=== PATIENT | female | born 1995 | race Caucasian/White ===

== ENCOUNTER 2018-04-27 16:29 | Observation (INO) | payer OTHER ==
[2018-04-27 16:43] VITALS: BMI 27.4
--- NOTE | 2018-04-27 16:45 | PDOC ---
Rapid Medical Evaluation Chief Complaint: Chest Pain Time Seen by Provider: 04/27/18 16:39 Medical Evaluation: 04/27/18 16:39 Pt presents to the ED stating she is having chest pain and difficulty breathing. Pt states that it started one hour ago while driving. States that she feels like her throat is closing up. Pt states she has anxiety. No recent travel, control use, smoking hx. Exam: VSS, O2 sat 100% HR 124. Ambulatory Orders: EKG, Labs, Urine, Preg Pt to present to ED for further evaluation. 04/27/18 16:45 Discharge Disposition - Diagnosis Shortness of breath - Referrals - Patient Instructions - Post Discharge Activity
[2018-04-27 17:37] LABS: BASO % 0.6 % (0-2.0); EOS % 1.3 % (0-4.5); HEMATOCRIT 42.8 % (32.4-45.2); HEMOGLOBIN 14.4 GM/dL (10.7-15.3); LYMPH % 14.1 % (8-40); MCH 29.3 pg (25.7-33.7); MCHC 33.6 g/dl (32.0-36.0); MEAN CELL VOLUME 87.4 fl (80-96); MEAN PLT VOLUME 8.5 fl (7.5-11.1); MONO % 4.6 % (3.8-10.2); NEUT % 79.4 % (42.8-82.8); PLATELET COUNT 323 K/MM3 (134-434); RBC 4.89 M/mm3 (3.60-5.2); RDW 12.1 % (11.6-15.6); WHITE BLOOD COUNT 12.2 K/mm3 (4.0-10.0)
--- NOTE | 2018-04-27 17:49 | PDOC ---
History of Present Illness <Brigette Sol - Last Filed: 04/27/18 23:51> - General History Source: Patient Exam Limitations: No Limitations - History of Present Illness Initial Comments: 04/27/18 19:39 22F with pmh of hives, dermatographia, presents to the ED for episode of palpitation and shortness of breath, feeling of throat closing before feeling better once here. She has multiple random episodes less severe than this one. Has been seen by a photograph developer last year who said her condition was idiopathic. \Denies leg pain/swelling. No anxiety, no recent travel, recent surgery control use, recent history. 04/27/18 19:48 <Karlos Ortiz - Last Filed: 04/28/18 00:09> - General Chief Complaint: Chest Pain Stated Complaint: CHEST PAIN Time Seen by Provider: 04/27/18 16:39 Past History <Brigette Sol - Last Filed: 04/27/18 23:51> - Past Medical History COPD: No Other medical history: [facility] mild panic attacks recently - Suicide/Smoking/Psychosocial Hx Smoking History: Never smoked Hx Alcohol Use: No Drug/Substance Use Hx: No <Karlos Ortiz - Last Filed: 04/28/18 00:09> - Past Medical History Allergies/Adverse Reactions: Allergies Allergy/AdvReac Type Severity Reaction Status Date / Time No Known Allergies Allergy Verified 04/27/18 16:43 Home Medications: Ambulatory Orders NK [No Known Home Medication] 04/27/18 Review of Systems - Review of Systems Able to Perform ROS?: Yes Is the patient limited Bur[place]ian proficient: No Constitutional: No: Symptoms Reported HEENTM: Yes: See HPI Respiratory: No: Symptoms reported Cardiac (ROS): Yes: Palpitations ABD/GI: No: Symptoms Reported : No: Symptoms Reported Musculoskeletal: No: Symptoms Reported Integumentary: Yes: See HPI Neurological: No: Symptoms reported All Other Systems: Reviewed and Negative <Karlos Ortiz - Last Filed: 04/28/18 00:09> *Physical Exam - Vital Signs Last Vital Signs Temp Pulse Resp BP Pulse Ox 98.7 F 117 H 16 127/71 100 04/27/18 18:41 04/27/18 18:41 04/27/18 18:41 04/27/18 18:41 04/27/18 18:41 <Brigette Sol - Last Filed: 04/27/18 23:51> - Vital Signs Last Vital Signs Temp Pulse Resp BP Pulse Ox 98.6 F 112 H 16 131/97 100 04/27/18 16:40 04/27/18 16:45 04/27/18 16:45 04/27/18 16:40 04/27/18 16:45 - Physical Exam General Appearance: Yes: Nourished, Appropriately Dressed. No: Apparent Distress HEENT: positive: EOMI, MELL, Normal ENT Inspection Respiratory/Chest: positive: Lungs Clear, Normal Breath Sounds. negative: Chest Tender, Respiratory Distress Cardiovascular: positive: Regular Rhythm, S1, S2, Tachycardia Gastrointestinal/Abdominal: positive: Normal Bowel Sounds, Flat, Soft. negative : Tender Musculoskeletal: positive: Normal Inspection. negative: CVA Tenderness Extremity: positive: Normal Capillary Refill, Normal Inspection, Normal Range of Motion Integumentary: positive: Other (dermatographia) Neurologic: positive: Fully Oriented, Alert, Normal Mood/Affect, Normal Response <Karlos Ortiz - Last Filed: 04/28/18 00:09> ED Treatment Course - LABORATORY CBC & Chemistry Diagram: 04/27/18 17:27 04/27/18 17:27 - ADDITIONAL ORDERS Additional order review: Laboratory Results 04/27/18 04/27/18 04/27/18 21:03 21:03 17:27 D-Dimer < 200 Sodium Potassium Chloride Carbon Dioxide Anion Gap BUN Creatinine Creat Clearance w eGFR Random Glucose Calcium Total Bilirubin AST ALT Alkaline Phosphatase Creatine Kinase 67 Creatine Kinase Index CK-MB (CK-2) Troponin I < 0.02 Total Protein Albumin TSH 1.33 Urine Color Urine Appearance Urine pH Ur Specific [place] Urine Protein Urine Glucose (UA) Urine Ketones Urine Blood Urine Nitrite Urine Bilirubin Urine Urobilinogen Ur Leukocyte Esterase Urine WBC (Auto) Urine RBC (Auto) Ur Epithelial Cells Urine HCG, Qual 04/27/18 04/27/18 04/27/18 17:27 17:27 17:15 D-Dimer Sodium 139 Potassium 3.8 Chloride 106 Carbon Dioxide 24 Anion Gap 9 BUN 12 Creatinine 0.9 Creat Clearance w eGFR > 60 Random Glucose 97 Calcium 9.5 Total Bilirubin 0.4 AST < 3 L ALT 21 Alkaline Phosphatase 79 Creatine Kinase 238 H Creatine Kinase Index 1.4 CK-MB (CK-2) 3.44 Troponin I < 0.02 Total Protein 8.4 H Albumin 4.8 TSH Urine Color Colorless Urine Appearance Clear Urine pH 7.0 Ur Specific [place] 1.002 Urine Protein Negative Urine Glucose (UA) Negative Urine Ketones Negative Urine Blood 1+ H Urine Nitrite Negative Urine Bilirubin Negative Urine Urobilinogen Negative Ur Leukocyte Esterase Negative Urine WBC (Auto) <1 Urine RBC (Auto) 1 Ur Epithelial Cells Rare Urine HCG, Qual Negative 04/27/18 17:27 RBC 4.89 MCV 87.4 MCHC 33.6 RDW 12.1 MPV 8.5 Neutrophils % 79.4 Lymphocytes % 14.1 Monocytes % 4.6 Eosinophils % 1.3 Basophils % 0.6 - RADIOLOGY Radiology Studies Ordered: Category Date Time Status CHEST PA & LAT [RAD] Stat Radiology 04/27/18 21:01 Taken - Medications Given in the ED: ED Medications Discontinued Medications Generic Name Dose Route Start Last Admin Trade Name Freq PRN Reason Stop Dose Admin Diphenhydramine HCl 50 mg 04/27/18 20:08 04/27/18 20:15 Benadryl Injection - IVPUSH 04/27/18 20:09 50 mg ONCE ONE Administration Sodium Chloride 1,000 mls @ 1,000 mls/hr 04/27/18 20:19 04/27/18 20:23 Normal Saline - IV 04/27/18 21:18 1,000 mls/hr ASDIR STA Administration Lorazepam 1 mg 04/27/18 20:56 04/27/18 21:35 Ativan - PO 04/27/18 20:57 1 mg ONCE ONE Administration <Brigette Sol - Last Filed: 04/27/18 23:51> - LABORATORY CBC & Chemistry Diagram: 04/27/18 17:27 04/27/18 17:27 - ADDITIONAL ORDERS Additional order review: 04/27/18 17:27 RBC 4.89 MCV 87.4 MCHC 33.6 RDW 12.1 MPV 8.5 Neutrophils % 79.4 Lymphocytes % 14.1 Monocytes % 4.6 Eosinophils % 1.3 Basophils % 0.6 <Karlos Ortiz - Last Filed: 04/28/18 00:09> Medical Decision Making - Medical Decision Making 04/27/18 19:51 Will send basic labs, cardiac enzymes, tryptase, EKG Will send home with referral to utilization specialist, Romario 04/27/18 19:52 04/27/18 23:40 ekg 1st degree AV block and tachycardia. PAtient spiked hr after injection of benadryl to the 150's given 1L of NS but patient persistently tachycardic in the 120's 8 hours later P 04/28/18 00:09 Carditis? check Lyme titers Will admit to telemetry obs 04/28/18 00:09 <Karlos Ortiz - Last Filed: 04/28/18 00:09> *DC/Admit/Observation/Transfer - Discharge Dispostion Decision to Admit order: Yes <Brigette Sol - Last Filed: 04/27/18 23:51> - Discharge Dispostion Decision to Admit order: Yes <Karlos Ortiz - Last Filed: 04/28/18 00:09> Diagnosis at time of Disposition: Shortness of breath - Discharge Dispostion Condition at time of disposition: Improved - Patient Instructions Additional Instructions: Follow up with utilization specialist
[2018-04-27 17:50] LABS: URINE APPEARANCE CLEAR; URINE BILIRUBIN NEGATIVE (<2.0 mg/dL); URINE COLOR COLORLESS; URINE GLUCOSE (UA) NEGATIVE (NEGATIVE); URINE KETONE NEGATIVE (NEGATIVE); URINE LEUK ESTERASE NEGATIVE (NEGATIVE); URINE NITRITE NEGATIVE (NEGATIVE); URINE PROTEIN NEGATIVE (NEGATIVE); URINE UROBILINOGEN NEGATIVE mg/dL (0.2-1.0)
[2018-04-27 18:03] LABS: ALBUMIN 4.8 g/dl (3.4-5.0); ALK PHOS 79 U/L (45-117); ANION GAP 9 (8-16); BILIRUBIN,TOTAL 0.4 mg/dL (0.2-1.0); BLOOD UREA NITROGEN 12 mg/dL (7-18); CALCIUM 9.5 mg/dL (8.5-10.1); CHLORIDE 106 mmol/L (98-107); CO2 24 mmol/L (21-32); CREATININE 0.9 mg/dL (0.55-1.02); GLUCOSE,RANDOM 97 mg/dL (74-106); POTASSIUM 3.8 mmol/L (3.5-5.1); SGPT/ALT 21 U/L (12-78); SODIUM 139 mmol/L (136-145); TOT PROT 8.4 g/dl (6.4-8.2)
[2018-04-27 18:26] LABS: SGOT/AST < 3 U/L (15-37)
[2018-04-27 18:32] LABS: EPI CELLS RARE /HPF (FEW)
[2018-04-27 18:59] LABS: HCG,QUALITATIVE URINE NEGATIVE
[2018-04-27] MEDS ORDERED: SODIUM CHLORIDE 1,000 ML IV STA (20:19)
--- NOTE | 2018-04-27 20:51 | PDOC ---
Attending Attestation - Resident Resident Name: Karlos Ortiz - ED Attending Attestation I have performed the following: I have examined & evaluated the patient, The case was reviewed & discussed with the resident, I agree w/resident's findings & plan - HPI HPI: 04/27/18 20:46 Pt comes with SOB and feeling that her throat was swelling today at 3:30 as she was at work, at [employer] in [facility] [employer]. Pt has been having allergic episodes as well as heart racing x 1 month. She went to an mold parter who found nothing specific, but told pt that she is allergic to random things such as "walking barefot on a cold floor," as per patient. Pt has been taking daily shreya tabs. Today pt ate fish and eggs. She states that she has no tongue or lip swelling, no voice change. COmplained of throat closing feeling, but she is able to drink water, and she drank a lot of water to avert the feeling. Here pt received benadryl. She has no fever and no chills; no hx of viral illness; no CP; no cough; no fever. No hx of reflux. No recent rtavel. She took a 3 [address] flight to [employer] in December. No long drives. She doesnt smoke tobacco and she is not on OCPs. She doesn't use drugs (smoked weed once and never again) Drinks alcohol socially. Pt states that when she drinks coffee, she feels like her heart speeds up. Pt may have propensity for arrhythmia, and for this she will be referred to cardiology as an outpatient. - Physicial Exam PE: 04/27/18 20:51 Normal Exam, clear lungs; tachy heart. Calves non edematous and no calf tenderness. !st set of labs normal UA normal. UCG negative. Pt will have 2nd set cardiac enzymes; repeat EKG and a D-Dimer sent - Medical Decision Making 04/28/18 04:48 Pt comes with SOB and heart racing. She states that for the past month she noticed that she feels palpitations when she drinks a few sips of coffee. Pt states that she feels a bit anxious, but admits that she has no reason to be nervous or anxious or stressed. Pt has persistent tachycardia in the ER and she will be admitted for cardiac eval, despite the fact that she has 2 negative cardiac enzymes. Her chest tightness began at arrival, and 2 card enzymes is not enough to r/o a cardiac event. Admit to telemetry obs, under the hospitalist. Heart Score/ECG Review - ECG Intrepretation Rhythm: Regular Rhythm - ST and T Early Repolarization: No Non Specific ST-T Wave changes: No Prolonged Q-T Interval: No - ECG Impressions Normal ECG: No Tachycardia: Sinus Torsades miah Pointes: No WPW: No
[2018-04-27] MEDS ORDERED: LORazepam 1 MG TABLET PO ONE (20:56)
[2018-04-27] MEDS ORDERED: LORazepam 0.5 MG TABLET ONE (21:30)
[2018-04-28] MEDS ORDERED: SODIUM CHLORIDE 1,000 ML IV SCH ×2 (01:15→12:57)
--- NOTE | 2018-04-28 01:40 | HP ---
CHIEF COMPLAINT: SOB, "throat closing" PCP: HISTORY OF PRESENT ILLNESS: Patient is a 22 y/o F w/ PMHx urticaria x 5 years treated by OTC claritin, p/w 1 month h/o episodic SOB, sensation of throat closing, difficulty swallowing, lightheadedness. Episodes last 10-30 minutes. Patient feels they are become more frequent, severe, and longer. Worst episode to date took place today, prompting ED visit. No chest pain, no pleuritic pain, no n/v/c/d, no fever or chills, no abdominal pain, no dysuria, normal BMs, no headache, no visual disturbance, no changes in sensation, no numbness/tingling, no weakness. Found to be persistently tachycardic to 120s in ED. Given 1 dose IV benadryl which precipitated throat closing sensation and aggravated tachycardia to 150s. Additionally given 1L saline bolus and one dose ativan. EKG showed 1st degree heart block. ER course was notable for: (1) 1st degree AV block (2) Benadryl precipitating tachycardia (3) Recent Travel: PAST MEDICAL HISTORY: None except as per HPI PAST SURGICAL HISTORY: None Social History: Smoking: No Alcohol: Socially Drugs: No Family History: non-contributory Allergies No Known Allergies Allergy (Verified 04/27/18 16:43) HOME MEDICATIONS: Home Medications Medication Instructions Recorded NK [No Known Home Medication] 04/27/18 REVIEW OF SYSTEMS As per [facility] PHYSICAL EXAMINATION Vital Signs - 24 hr 04/27/18 04/27/18 04/27/18 16:40 16:45 18:41 Temperature 98.6 F 98.7 F Pulse Rate 124 H Pulse Rate [ 112 H 117 H Apical] Respiratory 24 16 16 Rate Blood Pressure 131/97 Blood Pressure 127/71 [Left Arm] O2 Sat by Pulse 100 100 100 Oximetry (%) GENERAL: Awake, alert, and fully oriented, in no acute distress. HEAD: NC/AT EYES: PERRLA, EOMI EARS, NOSE, THROAT: MMM NECK: Normal range of motion, supple without lymphadenopathy, JVD, or masses, no thyromegaly LUNGS: Breath sounds equal, clear to auscultation bilaterally. No wheezes, and no crackles. No accessory muscle use. HEART: S1S2, tachycardic, bounding, no m/r/g ABDOMEN: Soft, nontender, not distended, normoactive bowel sounds, no guarding, no rebound, no masses. No hepatomegaly or splenomegaly. UPPER EXTREMITIES: 2+ pulses, warm, well-perfused. No cyanosis. No clubbing. No peripheral edema. LOWER EXTREMITIES: 2+ pulses, warm, well-perfused. No calf tenderness. No peripheral edema. NEUROLOGICAL: Cranial nerves II-XII intact b/l. 5/5 strength x 4 extremities, sensorium intact. PSYCHIATRIC: Cooperative. Good eye contact. Appropriate mood and affect. SKIN: mild diffuse dermatographic urticaria Laboratory Results - last 24 hr 04/27/18 04/27/18 04/27/18 17:15 17:27 17:27 WBC 12.2 H RBC 4.89 Hgb 14.4 Hct 42.8 MCV 87.4 MCH 29.3 MCHC 33.6 RDW 12.1 Plt Count 323 MPV 8.5 Absolute Neuts (auto) 9.7 Neutrophils % 79.4 Lymphocytes % 14.1 Monocytes % 4.6 Eosinophils % 1.3 Basophils % 0.6 Nucleated RBC % 0 D-Dimer Sodium 139 Potassium 3.8 Chloride 106 Carbon Dioxide 24 Anion Gap 9 BUN 12 Creatinine 0.9 Creat Clearance w eGFR > 60 Random Glucose 97 Calcium 9.5 Total Bilirubin 0.4 AST < 3 L ALT 21 Alkaline Phosphatase 79 Creatine Kinase Creatine Kinase Index CK-MB (CK-2) Troponin I Total Protein 8.4 H Albumin 4.8 TSH Urine Color Colorless Urine Appearance Clear Urine pH 7.0 Ur Specific [place] 1.002 Urine Protein Negative Urine Glucose (UA) Negative Urine Ketones Negative Urine Blood 1+ H Urine Nitrite Negative Urine Bilirubin Negative Urine Urobilinogen Negative Ur Leukocyte Esterase Negative Urine WBC (Auto) <1 Urine RBC (Auto) 1 Ur Epithelial Cells Rare Urine HCG, Qual Negative 04/27/18 04/27/18 04/27/18 17:27 17:27 21:03 WBC RBC Hgb Hct MCV MCH MCHC RDW Plt Count MPV Absolute Neuts (auto) Neutrophils % Lymphocytes % Monocytes % Eosinophils % Basophils % Nucleated RBC % D-Dimer < 200 Sodium Potassium Chloride Carbon Dioxide Anion Gap BUN Creatinine Creat Clearance w eGFR Random Glucose Calcium Total Bilirubin AST ALT Alkaline Phosphatase Creatine Kinase 238 H Creatine Kinase Index 1.4 CK-MB (CK-2) 3.44 Troponin I < 0.02 Total Protein Albumin TSH 1.33 Urine Color Urine Appearance Urine pH Ur Specific [place] Urine Protein Urine Glucose (UA) Urine Ketones Urine Blood Urine Nitrite Urine Bilirubin Urine Urobilinogen Ur Leukocyte Esterase Urine WBC (Auto) Urine RBC (Auto) Ur Epithelial Cells Urine HCG, Qual 04/27/18 21:03 WBC RBC Hgb Hct MCV MCH MCHC RDW Plt Count MPV Absolute Neuts (auto) Neutrophils % Lymphocytes % Monocytes % Eosinophils % Basophils % Nucleated RBC % D-Dimer Sodium Potassium Chloride Carbon Dioxide Anion Gap BUN Creatinine Creat Clearance w eGFR Random Glucose Calcium Total Bilirubin AST ALT Alkaline Phosphatase Creatine Kinase 67 Creatine Kinase Index CK-MB (CK-2) Troponin I < 0.02 Total Protein Albumin TSH Urine Color Urine Appearance Urine pH Ur Specific [place] Urine Protein Urine Glucose (UA) Urine Ketones Urine Blood Urine Nitrite Urine Bilirubin Urine Urobilinogen Ur Leukocyte Esterase Urine WBC (Auto) Urine RBC (Auto) Ur Epithelial Cells Urine HCG, Qual ASSESSMENT/PLAN: 22 y/o F w/ PMHx urticaria p/w 1 month h/o worsening episodic SOB, throat closing sensation, difficulty swallowing, noted to be persistently tachycardic on presentation #episodic SOB/throat closing on chronic urticaria -exacerbated by benadryl -WBC 12.2, negative d-dimer, TSH wnl, AST<3 -EKst degree AV block, will repeat -troponins neg x 2, pending 3rd -Lyme ab pending -Tryptase pending -ESR/CRP pending -UTox pending -ENT consult ordered for r/o angioedema #tachycardia -exacerbated by benadryl -TSH wnl, WBC 12.2 -repeat EKG and troponins -cardiology consult -NS @ 100 #FEN -NS @100 -monitor lytes -NPO pending endoscopy #PPX -SCDs #dispo -tele obs Visit type - Emergency Visit Emergency Visit: Yes ED Registration Date: 04/27/18 Care time: The patient presented to the Emergency Department on the above date and was hospitalized for further evaluation of their emergent condition. - New Patient This patient is new to me today: Yes Date on this admission: 04/28/18 - Critical Care Critical Care patient: No Hospitalist Screening - Colonoscopy Questionnaire Colonoscopy Questionnaire: Colonoscopy Questionnaire - Patient: 50 - 75 years old and never had a screening colonoscopy: No History of colon or rectal polyps, or CA: Unknown History of IBD, Crohn's disease or UC: Unknown History of abdominal radiation therapy as a child: Unknown - Relative: 1 with colon or rectal CA, or polyps at age 60 or younger: Unknown Colon or rectal CA diagnosed at age 45 or younger: Unknown Multiple relatives with colon or rectal CA: Unknown - Outcome: Screening Result: Negative Screen
--- NOTE | 2018-04-28 02:35 | PN ---
Teaching Attending Note Name of Resident: Rojelio Reynolds ATTENDING PHYSICIAN STATEMENT I saw and evaluated the patient. I reviewed the resident's note and discussed the case with the resident. I agree with the resident's findings and plan as documented. SUBJECTIVE: Patient is a 22 year old woman with history of Hives treated by OT claritin, presents with history episodic SOB, sensation of throat closing, difficulty swallowing, lightheadedness in the past month, but got worse today while driving to work. Episodes last 10-30 minutes. Patient feels they are become more frequent, severe, and longer. Her coworker drove her tothe ER. She denies chest pain, pleurisy, nausea, vomiting or diarrhea. Does not smoke or use any illicit drugs or alternative medicine products. LMP was 2 weeks ago and she is not on control pills. Found to be persistently tachycardic to 120s in ER. Given 1 dose IV benadryl which precipitated throat closing sensation and aggravated tachycardia to 150s. Additionally given 1L saline bolus and one dose ativan. EKG showed 1st degree heart block. OBJECTIVE: Alert and in no distress Vital Signs Period Temp Pulse Resp BP Sys/Anton Pulse Ox Last 24 Hr 98.6 F-98.7 F 112-124 16-24 127-131/71-97 100-100 HEENT: No Jaundice, eye redness or discharge, PERRLA, EOMI. No pharyngeal injection or edema. Normocephalic, atraumatic. External ears are normal and hearing is grossly intact. No nasal discharge. Neck: Supple, nontender. No palpable adenopathy or thyromegaly. No stridor. No JVD Chest: Good effort. Clear to auscultation and percussion. Heart: Tachycardia. No S3, rub or murmur Abdomen: Not distended, soft, nontender and no HSM. No rebound or guarding. Normoactive bowel sounds. Ext: Peripheral pulses intact. No leg edema. Skin: Warm and dry. No petechiae, rash or ecchymosis. Neuro: Alert. Oriented x3. CN 2-12 grossly intact. Sensation grossly intact in all four extremities and DTR are symmetric. Current Medications Generic Name Dose Route Start Last Admin Trade Name Freq PRN Reason Stop Dose Admin Sodium Chloride 1,000 mls @ 100 mls/hr 04/28/18 01:15 04/28/18 01:16 Normal Saline - IV 100 mls/hr ASDIR RYDER Administration Home Medications Medication Instructions Recorded NK [No Known Home Medication] 04/27/18 Abnormal Lab Results 04/27/18 04/27/18 04/27/18 17:15 17:27 17:27 WBC 12.2 H AST < 3 L Creatine Kinase Total Protein 8.4 H Urine Blood 1+ H 04/27/18 17:27 WBC AST Creatine Kinase 238 H Total Protein Urine Blood ASSESSMENT AND PLAN: 1. Tachycardia and sensation of throat closing - Exam of her oropharynx is unrevealing, her CXR is negative, TSH is normal and her EKG shows sinus tachycardia with first degree AV block and she has mild leukocytosis. There is no obvious unifying diagnosis. Idiopathic episodic angioedema or myocarditis are possible culprits. Will admit to telemetry to rule out ACS, get urine toxicology screen, ESR, CRP, Lyme antibody test and ECHO. Consult, Cardiology, Allergy/Imunology as well as ENT to better visualize her oropharynx 2. DVT prophylaxis - Heparin 5000u sq tid. 3. Advance directives - Full code
[2018-04-28 07:30] LABS: HEMATOCRIT 36.6 % (32.4-45.2); HEMOGLOBIN 12.6 GM/dL (10.7-15.3); MCH 29.9 pg (25.7-33.7); MCHC 34.4 g/dl (32.0-36.0); MEAN CELL VOLUME 86.9 fl (80-96); MEAN PLT VOLUME 8.7 fl (7.5-11.1); PLATELET COUNT 267 K/MM3 (134-434); RBC 4.21 M/mm3 (3.60-5.2); RDW 12.6 % (11.6-15.6)
[2018-04-28 07:46] LABS: INR 1.23 (0.82-1.09); PROTHROMBIN TIME (PATIENT) 13.9 SEC (9.7-13.0)
[2018-04-28 07:49] LABS: ACTIVATED PTT 29.8 SECONDS (25.2-36.5)
[2018-04-28 09:15] LABS: CALCIUM 8.9 mg/dL (8.5-10.1)
--- NOTE | 2018-04-28 10:09 | EKG ---
Test Reason : Blood Pressure : / mmHG Vent. Rate : 106 BPM Atrial Rate : 106 BPM P-R Int : 222 ms QRS Dur : 090 ms QT Int : 328 ms P-R-T Axes : 056 056 062 degrees QTc Int : 435 ms SINUS TACHYCARDIA WITH 1ST DEGREE A-V BLOCK POSSIBLE LEFT ATRIAL ENLARGEMENT BORDERLINE ECG NO PREVIOUS ECGS AVAILABLE Confirmed by ANUPAM TAM MD ([id number]) on 04/28/2018 10:08:50 AM Referred By: Confirmed By:ANUPAM TAM MD
--- NOTE | 2018-04-28 10:12 | EKG ---
Test Reason : Blood Pressure : / mmHG Vent. Rate : 084 BPM Atrial Rate : 084 BPM P-R Int : 240 ms QRS Dur : 084 ms QT Int : 352 ms P-R-T Axes : 057 069 050 degrees QTc Int : 415 ms SINUS RHYTHM WITH SINUS ARRHYTHMIA WITH 1ST DEGREE A-V BLOCK OTHERWISE NORMAL ECG WHEN COMPARED WITH ECG OF 27-APR-2018 16:49, NO SIGNIFICANT CHANGE WAS FOUND Confirmed by ANEL SPEARS, ANUPAM ([id number]) on 04/28/2018 10:12:22 AM Referred By: Confirmed By:ANUPAM TAM MD
--- NOTE | 2018-04-28 10:25 | HOSP ---
Subjective - Review of Symptoms Events since last encounter: Patient feels anxious, has mild anxiety disorder that lasts for 5 seconds but as per patient these episodes are lasting longer now. Vital Signs Temperature 98.5 F 04/28/18 02:53 Pulse Rate 78 04/28/18 05:15 Respiratory Rate 20 04/28/18 05:15 Blood Pressure 111/62 04/28/18 05:15 O2 Sat by Pulse Oximetry (%) 99 04/28/18 02:53 HEENT: No Jaundice, eye redness or discharge, PERRLA, EOMI. No pharyngeal injection or edema. Neck: Supple, nontender. No palpable adenopathy or thyromegaly. No stridor. No JVD Chest: Good effort. Clear to auscultation and percussion. Heart: Tachycardia. No S3, rub or murmur Abdomen: Not distended, soft, nontender and no HSM. No rebound or guarding. Ext: Peripheral pulses intact. No leg edema. Skin: Warm and dry. No petechiae, rash or ecchymosis. Neuro: Alert. Oriented x3. CN 2-12 grossly intact. CBCD WBC 12.0 K/mm3 (4.0-10.0) H 04/28/18 06:10 RBC 4.21 M/mm3 (3.60-5.2) 04/28/18 06:10 Hgb 12.6 GM/dL (10.7-15.3) 04/28/18 06:10 Hct 36.6 % (32.4-45.2) 04/28/18 06:10 MCV 86.9 fl (80-96) 04/28/18 06:10 MCHC 34.4 g/dl (32.0-36.0) 04/28/18 06:10 RDW 12.6 % (11.6-15.6) 04/28/18 06:10 Plt Count 267 K/MM3 (134-434) 04/28/18 06:10 MPV 8.7 fl (7.5-11.1) 04/28/18 06:10 CMP Sodium 139 mmol/L (136-145) 04/27/18 17:27 Potassium 3.8 mmol/L (3.5-5.1) 04/27/18 17:27 Chloride 106 mmol/L (98-107) 04/27/18 17:27 Carbon Dioxide 24 mmol/L (21-32) 04/27/18 17:27 Anion Gap 9 (8-16) 04/27/18 17:27 BUN 12 mg/dL (7-18) 04/27/18 17:27 Creatinine 0.9 mg/dL (0.55-1.02) 04/27/18 17:27 Creat Clearance w eGFR > 60 (>60) 04/27/18 17:27 Random Glucose 97 mg/dL (74-106) 04/27/18 17:27 Calcium 9.5 mg/dL (8.5-10.1) 04/27/18 17:27 Total Bilirubin 0.4 mg/dL (0.2-1.0) 04/27/18 17:27 AST < 3 U/L (15-37) L 04/27/18 17:27 ALT 21 U/L (12-78) 04/27/18 17:27 Alkaline Phosphatase 79 U/L (45-117) 04/27/18 17:27 Total Protein 8.4 g/dl (6.4-8.2) H 04/27/18 17:27 Albumin 4.8 g/dl (3.4-5.0) 04/27/18 17:27 CARDIAC ENZYMES Creatine Kinase 67 IU/L (26-192) 04/27/18 21:03 Troponin I < 0.02 ng/ml (0.00-0.05) 04/27/18 21:03 Current Medications Generic Name Dose Route Start Last Admin Trade Name Freq PRN Reason Stop Dose Admin Sodium Chloride 1,000 mls @ 100 mls/hr 04/28/18 01:15 04/28/18 01:16 Normal Saline - IV 100 mls/hr ASDIR RYDER Administration Home Medications Medication Instructions Recorded NK [No Known Home Medication] 04/27/18 ASSESSMENT AND PLAN: 22 y/o F w/ PMHx urticaria p/w 1 month h/o worsening episodic SOB, throat closing sensation, difficulty swallowing, noted to be persistently tachycardic on presentation # Patient had a second episode of tachycardia and sensation of throat closing , As per patient had a fish before this happened, started the patient on Decadron q6h, ativan prn if needed. allergy testing as an outpatient. Echo needed. #DVT prophylaxis - Heparin 5000u sq tid. Advance directives - Full code Physical Examination Vital Signs: Vital Signs Temperature 98.5 F 04/28/18 02:53 Pulse Rate 78 04/28/18 05:15 Respiratory Rate 20 04/28/18 05:15 Blood Pressure 111/62 04/28/18 05:15 O2 Sat by Pulse Oximetry (%) 99 04/28/18 02:53 Labs: CBC, BMP 04/28/18 06:10
--- NOTE | 2018-04-28 11:25 | EKG ---
Test Reason : Blood Pressure : / mmHG Vent. Rate : 084 BPM Atrial Rate : 084 BPM P-R Int : 206 ms QRS Dur : 086 ms QT Int : 348 ms P-R-T Axes : 045 075 051 degrees QTc Int : 411 ms NORMAL SINUS RHYTHM NORMAL ECG WHEN COMPARED WITH ECG OF 28-APR-2018 01:25, DE INTERVAL HAS DECREASED Confirmed by ANUPAM TAM MD ([id number]) on 04/28/2018 11:25:09 AM Referred By: Rebecca SOLOMON Confirmed By:ANUPAM TAM MD
[2018-04-28 12:26] LABS: BLOOD UREA NITROGEN 10 mg/dL (7-18); CHLORIDE 108 mmol/L (98-107); POTASSIUM 3.8 mmol/L (3.5-5.1); SODIUM 141 mmol/L (136-145)
--- NOTE | 2018-04-28 12:34 | CONSULT ---
Consult Consult Specialty:: Cardiology Referred by:: Medicine Reason for Consultation:: Tachycardia - History of Present Illness Chief Complaint: Throat closing History of Present Illness: 22 yo otherwise healthy female Takes Claritin for allergies Developed sudden onset of throat irritation with dyspnea yesterday on her way to work No abnormal exposures yesterday Developed some anxiety in that setting along with Palpitations and feelings of a racing heart Here found to have Sinus tach to 140s with 1 deg AVB D-dimer negative ECG done this AM at 09:31 shows NSR at 84/min with 1st degree AVB No h/o Anemia, no prior DVT, no recent immobilization, no recent travel, no fevers, no known thyroid disease Feels improved this AM - History Source History Provided By: Patient Limitations to Obtaining History: No Limitations - 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, CVA, Dementia, Migraine, Multiple Sclerosis, Peripheral Neuropathy, Parkinson's, Seizure, Syncope, TIA, Vertigo, Other Cardio/Vascular: No: AFIB, Aneurysm, Aortic Insufficiency, Aortic Stenosis, CAD , CHF, Deep Vein Thrombosis, HTN, Hyperlipdemia, [place], Mitral Insufficiency, Mitral Stenosis, Murmur, Pulmonary Hypertension, Other Pulmonary: No: Asthma, Bronchitis, Cancer, COPD, O2 Dependent, Pneumonia, Previously Intubated, Pulmonary Embolus, Pulmonary Fibrosis, Sleep Apnea, Other Gastrointestinal: No: Ascites, Cancer, Constipation, Crohn's Disease, Diverticulitis, Diverticulosis, Esophageal Varices, Gastritis, GERD, GI Bleed, Hemorrhoids, Hiatal Hernia, Inflamatory Bowel Disease, Irritable Bowel Disease, Pancreatitis, Peptic Ulcer Disease, Ulcerative Colitis, Other Renal/: No: Renal Failure, Renal Inusuff, BPH, Cancer, Hematuria, Hemodialysis , Neurogenic Bladder, Renal Calculi, UTI, Other Reproductive: No: Ectopic , Endometriosis, Fibroids, PID, Polycystic Ovary Syndrome, Postmenopausal, Other ...LMP: 04/14/18 ...: No Infectious Disease: No: AIDS, C-Diff, Herpes Zoster, HIV, MRSA, STD's, Tuberculosis, VREF, Other Psych: Yes: Anxiety Musculoskeletal: No: Bursitis, Chronic low back pain, Hemiparesis, Hemiplegia, Osteoarthritis, Paraplegia, Other Rheumatology: No: Fibromyalgia, Gout, Lupus, Rheumatoid Arthritis, Sarcoidosis, Vasculitis, Other Dermatology: No: Basal Cell, Cellulitis, Eczema, Melanoma, Psoriasis, Squamous Cell, Other - Alcohol/Substance Use Hx Alcohol Use: No - Smoking History Smoking history: Never smoked Home Medications - Allergies Allergies/Adverse Reactions: Allergies Allergy/AdvReac Type Severity Reaction Status Date / Time No Known Allergies Allergy Verified 04/27/18 16:43 - Home Medications Home Medications: Ambulatory Orders NK [No Known Home Medication] 04/27/18 Family Disease History - Family Disease History Family History: Unremarkable (No family h/o sudden cardiac or cardiovascular disease.) Review of Systems - Review of Systems Constitutional: denies: No Symptoms, Chills, Diaphoresis, Fever, Lethargy, Loss of Appetite, Malaise, Night Sweats, Unintentional Wgt. Loss, Weakness, Other Eyes: denies: No Symptoms, Blind Spots, Blurred Vision, Double Vision, Eye Pain , Floaters, Photophobia, Recent Change in Vision, Other HENT: denies: No Symptoms, Difficult Swallowing, Ear Discharge, Ear Pain, Epistaxis, Gingival Bleeding, Hearing Loss, Mouth Swelling, Nasal Congestion, Ocular Prosthesis, Throat Pain, Toothache, Ringing in Ears, Other Neck: denies: No Symptoms, Decreased ROM, Lumps, Pain on Movement, Stiffness, Swollen Glands, Tenderness, Other Cardiovascular: reports: Palpitations, Shortness of Breath Gastrointestinal: denies: No Symptoms, Abdominal Pain, Bloating, Constipation, Diarrhea, Dysphagia, Indigestion, Melena, Nausea, Rectal Bleeding, Vomiting, Vomiting Blood, Other Genitourinary: denies: No Symptoms, Burning, Discharge, Dysuria, Flank Pain, Frequency, Hematuria, Incontinence, Lesions, Menses, Pain, Testicular Mass, Testicular Pain, Testicular Swelling, Urgency, Vaginal Bleeding, Other Integumentary: reports: Other ((+) mosquito bites) Neurological: denies: No Symptoms, Change in LOC, Change in Speech, Confusion, Dizziness, Headache, Incoordination, Numbness, Parasthesia, Pre-Existing Deficit , Seizure, Syncope, Tremors, Unsteady Gait, Weakness, Other Endocrine: denies: No Symptoms, Excessive Sweating, Flushing, Increased Hunger, Increased Thirst, Intolerance to Cold, Intolerance to Heat, Unexplained Weight Gain, Unexplained Weight Loss, Other Psychiatric: reports: Anxiety Physical Exam Vital Signs: Vital Signs Temperature 98.5 F 04/28/18 02:53 Pulse Rate 78 04/28/18 05:15 Respiratory Rate 20 04/28/18 05:15 Blood Pressure 111/62 04/28/18 05:15 O2 Sat by Pulse Oximetry (%) 99 04/28/18 02:53 Constitutional: Yes: Well Nourished, No Distress, Calm (Intermittent sighs) Eyes: Yes: WNL HENT: Yes: WNL Neck: Yes: WNL Cardiovascular: Yes: WNL, Regular Rate and Rhythm Respiratory: Yes: WNL, CTA Bilaterally Gastrointestinal: Yes: WNL, Normal Bowel Sounds Musculoskeletal: Yes: WNL Extremities: Yes: WNL Edema: No Labs: CBC, BMP 04/28/18 06:10 Imaging - Results X-ray: Image Reviewed (No acute pulmonary disease) EKG: Image Reviewed (ECG at 09:31 on 04/28/2018 shows NSR at 84/min with 1 deg AVB) Assessment/Plan 22 yo female with odd ?allergic reaction with throat closing and noted sinus tachycardia. In this age typical etiologies of sinus tachycardia include, fever, thyroid disease, anemia, hypoxia/DVT/PE or pain. She has none of these typical findings. Urine preg negative Given her living in [facility] area, would check lyme titer Reasonable to check an echo to rule out an effusion but suspicion is low Low suspicion for PE given negative D-dimer, but unclear why she sighs, may consider pulmonary input Would not treat her tachycardia at this time
[2018-04-28 12:35] LABS: ALBUMIN 3.9 g/dl (3.4-5.0); ALK PHOS 66 U/L (45-117); ANION GAP 11 (8-16); BILIRUBIN,TOTAL 0.5 mg/dL (0.2-1.0); CO2 22 mmol/L (21-32); CREATININE 0.6 mg/dL (0.55-1.02); GLUCOSE,RANDOM 75 mg/dL (74-106); MAGNESIUM 2.4 mg/dL (1.8-2.4); SGOT/AST 5 U/L (15-37); SGPT/ALT 17 U/L (12-78); TOT PROT 6.7 g/dl (6.4-8.2)
[2018-04-28] MEDS: LORATADINE 10 MG TABLET PO SCH (13:15)
[2018-04-28] MEDS ORDERED: RANITIDINE HCL 150 MG TABLET (FP) PO SCH (13:15)
[2018-04-28] MEDS ORDERED: DEXAMETHASONE SOD PHOSPHATE 4 MG/1 ML VIAL IVPUSH ONE (14:56)
[2018-04-28] MEDS ORDERED: LORazepam 2 MG/ML SDV VIAL IVPUSH ONE (15:27)
--- NOTE | 2018-04-28 15:38 | CON.ENT ---
Consult Consult Specialty:: ENT Reason for Consultation:: r/o angioedema - History of Present Illness Chief Complaint: short of breath History of Present Illness: 22F has had a few episodes over the last month of feeling like her throat is closing and she cannot draw in air and must breath very deeply. It usually resolves spontaneously after a few minutes. It is random in onset without any precipitating foods or new medications. There is often associated feeling of her heart racing, and some chest pain. It has not happened overnight and she denies GERD. She denies any noisy breathing (ie: stridor/stertor), or lip/ tongue swelling. She periodically gets hives for which she takes antihistamines. No throat surgery or neck trauma. Denies voice changes, dysphagia, odynophagia. In ER was noted to have tachycardia. She got benadryl parenterally and her HR went up to 150s. Cardiology has been consulted. 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, Dementia, Migraine, Multiple Sclerosis, Peripheral Neuropathy, Parkinson's, Seizure, Syncope, TIA, Vertigo, Other Cardio/Vascular: No: AFIB, Aneurysm, Aortic Insufficiency, Aortic Stenosis, CAD , CHF, Deep Vein Thrombosis, HTN, Hyperlipdemia, [place], Mitral Insufficiency, Mitral Stenosis, Murmur, Pulmonary Hypertension, Other Pulmonary: No: Asthma, Bronchitis, Cancer, COPD, O2 Dependent, Pneumonia, Previously Intubated, Pulmonary Embolus, Pulmonary Fibrosis, Sleep Apnea, Other Gastrointestinal: No: Ascites, Cancer, Constipation, Crohn's Disease, Diverticulitis, Diverticulosis, Esophageal Varices, Gastritis, GERD, GI Bleed, Hemorrhoids, Hiatal Hernia, Inflamatory Bowel Disease, Irritable Bowel Disease, Pancreatitis, Peptic Ulcer Disease, Ulcerative Colitis, Other Renal/: No: Renal Failure, Renal Inusuff, BPH, Cancer, Hematuria, Hemodialysis , Neurogenic Bladder, Renal Calculi, UTI, Other ...LMP: 04/14/18 ...: No Infectious Disease: No: AIDS, C-Diff, Herpes Zoster, HIV, MRSA, STD's, Tuberculosis, VREF, Other Psych: Yes: Anxiety Musculoskeletal: No: Bursitis, Chronic low back pain, Hemiparesis, Hemiplegia, Osteoarthritis, Paraplegia, Other Rheumatology: No: Fibromyalgia, Gout, Lupus, Rheumatoid Arthritis, Sarcoidosis, Vasculitis, Other Dermatology: No: Basal Cell, Cellulitis, Eczema, Melanoma, Psoriasis, Squamous Cell, Other - Alcohol/Substance Use Hx Alcohol Use: No - Smoking History Smoking history: Never smoked Home Medications - Allergies Allergies/Adverse Reactions: Allergies Allergy/AdvReac Type Severity Reaction Status Date / Time Fish Containing Products Allergy Severe Verified 04/28/18 13:01 - Home Medications Home Medications: Ambulatory Orders Epinephrine [Epipen 2-Jerry] 0.3 mg IJ ASDIR #1 kit 04/29/18 Famotidine [Pepcid] 40 mg PO DAILY #14 tablet 04/29/18 Methylprednisolone [Medrol Dose Jerry] 4 mg PO ASDIR #21 tablet 04/29/18 Review of Systems Unable to obtain ROS, reason: per HPI. currently fine. Physical Exam-ENT Vital Signs: Vital Signs Temperature 98.7 F 04/28/18 10:00 Pulse Rate 98 H 04/28/18 10:00 Respiratory Rate 20 04/28/18 10:00 Blood Pressure 120/67 04/28/18 10:00 O2 Sat by Pulse Oximetry (%) 99 04/28/18 10:00 Constitutional: Yes: Well Nourished, No Distress, Calm, Other (Resting in bed with family at BS. No stridor/stertor. Very pleasant. No drooling. Normal voice. No incr WOB.) Head: Yes: WNL Face: Yes: WNL Eyes: Yes: WNL Nose: Yes: WNL Nasal Passage: Yes: WNL Oral/Pharynx: Yes: WNL Outer Ear: Yes: WNL Ear Canal: Yes: WNL, Cerumen Tympanic Membrane: Yes: Other (grossly clear) Neck: Yes: WNL Respiratory: Yes: WNL Neurological: Yes: Other (CN3-7,11,12 intact, symmetrical) Imaging - Results Other: Other (Flexible Fiberoptic Laryngoscopy. Disc rbla, pt consents. Passed through nose to supraglottis, withdrawn. Findings: 1. Mild postcricoid edema 2. Normal vocal cord mobility. No paradoxical movement. 3. Normal n/p, o/p, h/p , larynx otherwise. No masses/lesions. No angioedema.) Problem List - Problems (1) Shortness of breath Assessment/Plan: Periodically short of breath feeling throat close (no stridor), chest pain, and tachycardia - Agree with Cardiology consultation - No evidence of angioedema today. I do not see (nor is there report of) swelling lips or tongue or face, nor in her larynx. - Given her chronic urticaria with hives, I advised consultation with an Sanitation Lead for full workup of this as her symptoms could exist along a spectrum to include periodic paroxysmal anioedema. - Silent reflux can occasionally cause such symptoms though no particularly strong history to suggest this. Continue Ranitidine. - Possibly anxiety/panic attack - diagnosis of exclusion. - Less likely laryngospasm as she appears to be able to move air in/out when it happens with deep breaths. Consider Pulmonary evaluation, spirometry. - Ddimer neg. Consider CTA Chest as indic. Thank you for this consultation. Please call with questions. Code(s): R06.02 - SHORTNESS OF BREATH
--- NOTE | 2018-04-28 19:46 | EKG ---
Test Reason : Blood Pressure : / mmHG Vent. Rate : 106 BPM Atrial Rate : 106 BPM P-R Int : 218 ms QRS Dur : 084 ms QT Int : 330 ms P-R-T Axes : 052 069 040 degrees QTc Int : 438 ms SINUS TACHYCARDIA WITH 1ST DEGREE A-V BLOCK OTHERWISE NORMAL ECG WHEN COMPARED WITH ECG OF 28-APR-2018 09:31, NO SIGNIFICANT CHANGE WAS FOUND Confirmed by ANEL SPEARS, ANUPAM ([id number]) on 04/28/2018 7:46:03 PM Referred By: Naila ANGELES Confirmed By:ANUPAM TAM MD
[2018-04-28] MEDS: FAMOTIDINE 20 MG/50 ML IVPB 20 MG/50 ML MG IVPB SCH (21:56)
[2018-04-28] MEDS: DEXAMETHASONE SOD PHOSPHATE 4 MG/1 ML VIAL IVPUSH SCH (21:56)
[2018-04-29] MEDS: DEXAMETHASONE SOD PHOSPHATE 4 MG/1 ML VIAL IVPUSH SCH ×4 (03:00→21:05)
[2018-04-29] MEDS: LORATADINE 10 MG TABLET PO SCH (09:17)
[2018-04-29] MEDS: FAMOTIDINE 20 MG/50 ML IVPB 20 MG/50 ML MG IVPB SCH ×2 (09:17→21:05)
[2018-04-29] MEDS: SODIUM CHLORIDE 1,000 ML IV SCH (10:35)
--- NOTE | 2018-04-29 11:07 | PN ---
Progress Note, Physician History of Present Illness: No CV events overnight Tele with ST to 130s with activity - Current Medication List Current Medications: Active Medications Dexamethasone Sodium Phosphate (Decadron Injection -) 4 mg IVPUSH Q6H-IV RYDER Last Admin: 04/29/18 09:17 Dose: 4 mg Famotidine/Sodium Chloride (Pepcid 20 Mg Premixed Ivpb -) 20 mg in 50 mls @ 100 mls/hr IVPB BID RYDER Last Admin: 04/29/18 09:17 Dose: 100 mls/hr Sodium Chloride (Normal Saline -) 1,000 mls @ 150 mls/hr IV ASDIR RYDER Loratadine (Claritin -) 10 mg PO DAILY RYDER Last Admin: 04/29/18 09:17 Dose: 10 mg - Objective Vital Signs: Vital Signs Temperature 98.7 F 04/29/18 09:00 Pulse Rate 80 04/29/18 09:00 Respiratory Rate 18 04/29/18 09:00 Blood Pressure 123/68 04/29/18 09:00 O2 Sat by Pulse Oximetry (%) 99 04/28/18 22:00 Constitutional: Yes: No Distress, Calm Eyes: Yes: WNL HENT: Yes: WNL Neck: Yes: WNL Cardiovascular: Yes: WNL, Regular Rate and Rhythm Respiratory: Yes: WNL, CTA Bilaterally Gastrointestinal: Yes: Normal Bowel Sounds Musculoskeletal: Yes: WNL Extremities: Yes: WNL Edema: No Labs: CBC, BMP 04/28/18 06:10 04/28/18 06:10 INR, PTT INR 1.23 (0.82-1.09) H 04/28/18 06:10 Assessment/Plan 22 yo female with odd ?allergic reaction with throat closing and noted sinus tachycardia. In this age typical etiologies of sinus tachycardia include, fever, thyroid disease, anemia, hypoxia/DVT/PE or pain. She has none of these typical findings. Urine preg negative Given her living in [facility] area, would check lyme titer Reasonable to check an echo to rule out an effusion but suspicion is low Low suspicion for myocarditis (no evidence of CHF or low output) Low suspicion for PE given negative D-dimer, but unclear why she sighs, may consider pulmonary input Would not treat her tachycardia at this time as her tachycardia improves with deep breathing.
--- NOTE | 2018-04-29 11:11 | PN ---
Physical Exam: SUBJECTIVE: Patient seen and examined at bedside. Still complains of mild shortness of breath, but improved with steroids. Not tachycardic overnight but became tachycardic on examination. OBJECTIVE: Vital Signs Period Temp Pulse Resp BP Sys/Anton Pulse Ox Last 24 Hr 97.4 F-99.4 F 70-134 18-24 91-148/50-74 99-100 GENERAL: Awake, alert, and fully oriented, in no acute distress. HEAD: NC/AT EYES: PERRLA, EOMI EARS, NOSE, THROAT: MMM NECK: Normal range of motion, supple without lymphadenopathy, JVD, or masses, no thyromegaly LUNGS: Breath sounds equal, clear to auscultation bilaterally. No wheezes, and no crackles. No accessory muscle use. HEART: S1S2, tachycardic, no m/r/g ABDOMEN: Soft, nontender, not distended, normoactive bowel sounds, no guarding, no rebound, no masses. No hepatomegaly or splenomegaly. UPPER EXTREMITIES: 2+ pulses, warm, well-perfused. No cyanosis. No clubbing. No peripheral edema. LOWER EXTREMITIES: 2+ pulses, warm, well-perfused. No calf tenderness. No peripheral edema. NEUROLOGICAL: Cranial nerves II-XII intact b/l. 5/5 strength x 4 extremities, sensorium intact. PSYCHIATRIC: Cooperative. Good eye contact. Appropriate mood and affect. SKIN: mild diffuse dermatographic urticaria Laboratory Results - last 24 hr 04/28/18 06:10 Sodium 141 Potassium 3.8 Chloride 108 H Carbon Dioxide 22 Anion Gap 11 BUN 10 Creatinine 0.6 Creat Clearance w eGFR > 60 Random Glucose 75 Calcium 8.9 Phosphorus 4.0 Magnesium 2.4 Total Bilirubin 0.5 AST 5 L ALT 17 Alkaline Phosphatase 66 D Troponin I < 0.02 Total Protein 6.7 Albumin 3.9 Active Medications Generic Name Dose Route Start Last Admin Trade Name Freq PRN Reason Stop Dose Admin Dexamethasone Sodium Phosphate 4 mg 04/28/18 21:00 04/29/18 09:17 Decadron Injection - IVPUSH 4 mg Q6H-IV RYDER Administration Famotidine/Sodium Chloride 20 mg in 50 mls @ 100 mls/hr 04/28/18 22:00 09:17 Pepcid 20 Mg Premixed Ivpb - IVPB 100 mls/hr BID RYDER Administration Sodium Chloride 1,000 mls @ 150 mls/hr 04/29/18 10:11 Normal Saline - IV ASDIR RYDER Loratadine 10 mg 04/28/18 13:00 04/29/18 09:17 Claritin - PO 10 mg DAILY RYDER Administration ASSESSMENT/PLAN: 22 y/o F w/ PMHx urticaria p/w 1 month h/o worsening episodic SOB, throat closing sensation, difficulty swallowing, noted to be persistently tachycardic on presentation #shortness of breath -improved today, still complaining of mild SOB, but no more feeling of throat closing -will need echocardiogram to evaluate structural abnormalities that could lead to current symptoms -could also be psychiatric and anxiety related -EKst degree AV block, will repeat -Lyme ab pending #tachycardia -TSH wnl -EKG unchanged and troponins normal -cardiology consult appreciated; follow echo tomorrow -NS @ 150cc/hr #FEN -NS @ 150cc/hr -monitor lytes -regular diet #PPX -SCDs #dispo -tele obs -if echo normal, can likely d/c home on medrol dose dung, pepcid, and 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
[2018-04-29] MEDS ORDERED: ALBUTEROL SO4 0.083% IH SOL 2.5 MG/3 ML VIAL.NEB. NEB PRN (11:52)
--- NOTE | 2018-04-29 11:54 | CON.PULM ---
Consult Consult Specialty:: PULMONARY Referred by:: Dr. Francisco Reason for Consultation:: shortness of breath - History of Present Illness Chief Complaint: shortness of breath History of Present Illness: 22yo female without significant past medical history who was admitted with intermittent shortness of breath, throat closing. No chest pain or palpitations. No known preceding triggers. No fevers, chills or sweats. No cough or wheezing. Denies history of asthma, no family or childhood history of asthma. No pets at home, she is a never smoker. 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 Found to be persistently tachycardic especially with ambulating. - History Source History Provided By: Patient, Medical Record Limitations to Obtaining History: No Limitations - Past Medical History ...LMP: 04/14/18 ...: No Psych: Yes: Anxiety - Alcohol/Substance Use Hx Alcohol Use: No - Smoking History Smoking history: Never smoked Home Medications - Allergies Allergies/Adverse Reactions: Allergies Allergy/AdvReac Type Severity Reaction Status Date / Time Fish Containing Products Allergy Severe Verified 04/28/18 13:01 - Home Medications Home Medications: Ambulatory Orders Epinephrine [Epipen 2-Jerry] 0.3 mg IJ ASDIR #1 kit 04/29/18 Famotidine [Pepcid] 40 mg PO DAILY #14 tablet 04/29/18 Methylprednisolone [Medrol Dose Jerry] 4 mg PO ASDIR #21 tablet 04/29/18 Review of Systems - Review of Systems Constitutional: denies: Chills, Fever Eyes: denies: Recent Change in Vision HENT: denies: Nasal Congestion, Throat Pain Neck: denies: Stiffness, Tenderness Cardiovascular: reports: Shortness of Breath. denies: Chest Pain, Edema, Palpitations Respiratory: denies: Cough, Hemoptysis, Wheezing Gastrointestinal: denies: Abdominal Pain, Nausea, Vomiting Genitourinary: denies: Dysuria, Hematuria Neurological: denies: Dizziness, Headache Endocrine: denies: Unexplained Weight Loss Physical Exam Vital Sings: Vital Signs Temperature 98.7 F 04/29/18 09:00 Pulse Rate 80 04/29/18 09:00 Respiratory Rate 18 04/29/18 09:00 Blood Pressure 123/68 04/29/18 09:00 O2 Sat by Pulse Oximetry (%) 99 04/28/18 22:00 Constitutional: Yes: Calm Eyes: Yes: Conjunctiva Clear, EOM Intact HENT: Yes: Atraumatic, Normocephalic Neck: Yes: Supple, Trachea Midline Cardiovascular: Yes: Regular Rate and Rhythm Respiratory: Yes: Regular, CTA Bilaterally ...Clubbing: No Gastrointestinal: Yes: Normal Bowel Sounds, Soft. No: Tenderness Edema: No Neurological: Yes: Alert, Oriented Labs: CBC, BMP 04/28/18 06:10 04/28/18 06:10 Imaging - Results Chest X-ray: Report Reviewed, Image Reviewed (no infiltrates) Problem List - Problems (1) Shortness of breath Code(s): R06.02 - SHORTNESS OF BREATH Assessment/Plan Shortness of breath r/o Reactive Airways - trial of inhaled bronchodilators - if some relief with duoneb, can start trial of LABA/ICS - will need outpt PFTs - DVT prophylaxis Thank you for this consult David Castorena MD
[2018-04-29] MEDS ORDERED: ALBUTEROL SO4 2.5/IPRATROPIUM 0.5 INH SOL 3 ML VIAL.NEB. NEB SCH (12:00)
[2018-04-29] MEDS ORDERED: LORazepam 2 MG/ML SDV VIAL IVPUSH PRN (15:28)
[2018-04-29] MEDS ORDERED: ENOXAPARIN NA (PORCINE) 60 MG/0.6 ML DISP.SYRIN SQ SCH (15:45)
[2018-04-30] MEDS: DEXAMETHASONE SOD PHOSPHATE 4 MG/1 ML VIAL IVPUSH SCH ×3 (04:00→14:37)
--- NOTE | 2018-04-30 08:42 | PN ---
Physical Exam: SUBJECTIVE: Patient seen and examined OBJECTIVE: Vital Signs Period Temp Pulse Resp BP Sys/Anton Pulse Ox Last 24 Hr 97.4 F-99.0 F 56-118 18-20 103-142/52-87 99-99 GENERAL: The patient is awake, alert, and fully oriented, in no acute distress. HEAD: Normal with no signs of trauma. EYES: PERRL, extraocular movements intact, sclera anicteric, conjunctiva clear. No ptosis. ENT: Ears normal, nares patent, oropharynx clear without exudates, moist mucous membranes. NECK: Trachea midline, full range of motion, supple. LUNGS: Breath sounds equal, clear to auscultation bilaterally, no wheezes, no crackles, no accessory muscle use. HEART: Regular rate and rhythm, S1, S2 without murmur, rub or gallop. ABDOMEN: Soft, nontender, nondistended, normoactive bowel sounds, no guarding, no rebound, no hepatosplenomegaly, no masses. EXTREMITIES: 2+ pulses, warm, well-perfused, no edema. NEUROLOGICAL: Cranial nerves II through XII grossly intact. Normal speech, gait not observed. PSYCH: Normal mood, normal affect. SKIN: Warm, dry, normal turgor, no rashes or lesions noted Active Medications Generic Name Dose Route Start Last Admin Trade Name Freq PRN Reason Stop Dose Admin Dexamethasone Sodium Phosphate 4 mg 04/28/18 21:00 04/30/18 04:00 Decadron Injection - IVPUSH 4 mg Q6H-IV RYDER Administration Famotidine/Sodium Chloride 20 mg in 50 mls @ 100 mls/hr 04/28/18 22:00 21:05 Pepcid 20 Mg Premixed Ivpb - IVPB 100 mls/hr BID RYDER Administration Sodium Chloride 1,000 mls @ 150 mls/hr 04/29/18 10:11 04/29/18 10:35 Normal Saline - IV 150 mls/hr ASDIR RYDER Administration Loratadine 10 mg 04/28/18 13:00 04/29/18 09:17 Claritin - PO 10 mg DAILY RYDER Administration Lorazepam 0.5 mg 04/29/18 15:28 04/30/18 01:08 Ativan Injection - IVPUSH 0.5 mg Q6H PRN Administration ANXIETY ASSESSMENT/PLAN:
--- NOTE | 2018-04-30 09:17 | PN ---
Progress Note, Physician Chief Complaint: throat closing up History of Present Illness: states she's had the sensation of not getting enough air in, sporadically at rest, with relief when takes a deep breath intentionally--going on intermittently for a month or so. episode of throat feeling like closing up on DOA was new--resolved completely here. never palpitations, cp, syncope denies incr stressors at home/work admits to some anxiety regarding the breathing sx's, making her fixate on why it 's happening - Current Medication List Current Medications: Active Medications Dexamethasone Sodium Phosphate (Decadron Injection -) 4 mg IVPUSH Q6H-IV RYDER Last Admin: 04/30/18 04:00 Dose: 4 mg Famotidine/Sodium Chloride (Pepcid 20 Mg Premixed Ivpb -) 20 mg in 50 mls @ 100 mls/hr IVPB BID [facility] Last Admin: 04/29/18 21:05 Dose: 100 mls/hr Sodium Chloride (Normal Saline -) 1,000 mls @ 150 mls/hr IV ASDIR [facility] Last Admin: 04/29/18 10:35 Dose: 150 mls/hr Loratadine (Claritin -) 10 mg PO DAILY [facility] Last Admin: 04/29/18 09:17 Dose: 10 mg Lorazepam (Ativan Injection -) 0.5 mg IVPUSH Q6H PRN PRN Reason: ANXIETY Last Admin: 04/30/18 01:08 Dose: 0.5 mg - Objective Vital Signs: Vital Signs Temperature 97.4 F L 04/30/18 06:00 Pulse Rate 73 04/30/18 06:00 Respiratory Rate 20 04/30/18 06:00 Blood Pressure 114/52 04/30/18 06:00 O2 Sat by Pulse Oximetry (%) 99 04/30/18 06:00 Constitutional: Yes: Well Nourished, No Distress, Calm Cardiovascular: Yes: Regular Rate and Rhythm, S1, S2. No: Gallop, Murmur Respiratory: Yes: Regular, CTA Bilaterally. No: Accessory Muscle Use, Rales, Wheezes Extremities: No: Cold Edema: No Neurological: Yes: Alert, Oriented Psychiatric: No: Agitated Labs: CBC, BMP 04/28/18 06:10 04/28/18 06:10 INR, PTT INR 1.23 (0.82-1.09) H 04/28/18 06:10 Assessment/Plan ECG 04/28/2018 shows NSR at 84/min with 1 deg AVB Assessment/Plan 22 yo female with odd ?allergic reaction with throat closing and noted sinus tachycardia. sinus tach: -no evidence of fever/infection, thyroid disease, anemia, hypoxia/DVT/PE or pain. -possibly anxiety at play: pt has been tearful here in discussions with hospitalist, describes dyspnea as air hunger, need to take deep breath/sigh which is often non-pathological sx. she admits to modest anxiety about the cause of her new dyspnea sx's. -also of note, the tachycardia completely resolves while she is asleep, with normal vagally mediated sinus harry to 48-50s overnight, which argues against a pathological process driving her HR up -f/u echo -low suspicion for PE given negative D-dimer -? inappropriate sinus tach here--tx (beta allen, diltiazem, ivarbradine) is symptom-guided (would need outpt event monitor to confirm tach pre-dates sob sx , and not the other way around which is expected relationship if anxiety is triggering). -deferring med tx of tachycardia atypical dyspnea: -feeling of air hunger, cannot get deep enough breath--sporadic over past few weeks. -no exertional sx's. -sx resolves with intentional deep breath. 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 however often takes on a life of its own once it starts. -reassurance provided to pt here that all testing shows no signs of cardiac or pulmonary disease, with echo pending still. -pt advised that if echo is normal, i do not believe her sx is cardiac-related OK FOR DISCHARGE IF ECHO WNL
[2018-04-30] MEDS: LORATADINE 10 MG TABLET PO SCH (09:57)
[2018-04-30] MEDS: FAMOTIDINE 20 MG/50 ML IVPB 20 MG/50 ML MG IVPB SCH (09:57)
[2018-04-30] MEDS: SODIUM CHLORIDE 1,000 ML IV SCH (10:36)
--- NOTE | 2018-04-30 10:36 | PN ---
Progress Note, Physician History of Present Illness: PULMONARY ALERT,NO DISTRESS,-SOB,-COUGH,- SENSATION OF THROAT CLOSING,-TACHYCARDIA - Current Medication List Current Medications: Active Medications Dexamethasone Sodium Phosphate (Decadron Injection -) 4 mg IVPUSH Q6H-IV RYDER Last Admin: 04/30/18 09:57 Dose: 4 mg Famotidine/Sodium Chloride (Pepcid 20 Mg Premixed Ivpb -) 20 mg in 50 mls @ 100 mls/hr IVPB BID [facility] Last Admin: 04/30/18 09:57 Dose: 100 mls/hr Sodium Chloride (Normal Saline -) 1,000 mls @ 150 mls/hr IV ASDIR [facility] Last Admin: 04/29/18 10:35 Dose: 150 mls/hr Loratadine (Claritin -) 10 mg PO DAILY [facility] Last Admin: 04/30/18 09:57 Dose: 10 mg Lorazepam (Ativan Injection -) 0.5 mg IVPUSH Q6H PRN PRN Reason: ANXIETY Last Admin: 04/30/18 01:08 Dose: 0.5 mg - Objective Vital Signs: Vital Signs Temperature 98.2 F 04/30/18 09:00 Pulse Rate 74 04/30/18 09:00 Respiratory Rate 14 04/30/18 09:00 Blood Pressure 118/72 04/30/18 09:00 O2 Sat by Pulse Oximetry (%) 99 04/30/18 06:00 Constitutional: Yes: Well Nourished, Calm Eyes: Yes: WNL HENT: Yes: WNL Neck: Yes: WNL, Other (- STRIDOR) Cardiovascular: Yes: Regular Rate and Rhythm, S1, S2 Gastrointestinal: Yes: WNL Extremities: Yes: WNL Edema: No Assessment/Plan Problem List - Problems (1) Shortness of breath Code(s): R06.02 - SHORTNESS OF BREATH Assessment/Plan Shortness of breath r/o Reactive Airways - trial of inhaled bronchodilators - if some relief with duoneb, can start trial of LABA/ICS - outpt PFTs - DVT prophylaxis - Peak flow DR SORTO
--- NOTE | 2018-04-30 11:51 | ECHO ---
Name: FRANSISCO MENDOZA Study Date: 04/30/2018 08:30 AM Age: 22 yrs Height: 64 in Weight: 160 lb BSA IVSd 0.75cm Ao root diam2.5cm LVIDd 4.2cm LA dimension 3.1cm LVIDs 2.8cm LVPWd 1.0cm EDV(Ana) 80.2ml ESV(Ana) 30.8ml MV E max jared 126.0cm/sec Med Peak E' Jared 10.2 cm/sec MV A max jared 80.4cm/sec Med E/e' 12.3 MV E/A 1.6 Lat Peak E' Vel21.6c m/sec MV dec time 0.37sec Lat E/e'5.8 PI Vmax 177.8cm/sec
[2018-04-30 14:27] VITALS: BP 118/65; PULSE 82; TEMP 98.5
--- NOTE | 2018-04-30 16:05 | DS ---
Physical Exam: SUBJECTIVE: Patient seen and examined at bedside. No new complaints. no episodes of tachycardia. No events on tele. OBJECTIVE: Vital Signs Period Temp Pulse Resp BP Sys/Anton Pulse Ox Last 24 Hr 97.4 F-98.5 F 56-118 14-20 103-142/52-87 99-99 PHYSICAL EXAM GENERAL: The patient is awake, alert, and fully oriented, in no acute distress. NECK: Trachea midline, full range of motion, supple. LUNGS: Breath sounds equal, clear to auscultation bilaterally, no wheezes, no crackles, no accessory muscle use. HEART: Regular rate and rhythm, S1, S2 without murmur, rub or gallop. ABDOMEN: Soft, nontender, nondistended, normoactive bowel sounds, no guarding, no rebound, no hepatosplenomegaly, no masses. EXTREMITIES: 2+ pulses, warm, well-perfused, no edema. NEUROLOGICAL: Cranial nerves II through X grossly intact. Normal speech, gait not observed. PSYCH: Normal mood, normal affect. SKIN: Warm, dry, normal turgor, no rashes or lesions noted. LABS HOSPITAL COURSE: Date of Admission:04/28/18 The patient is a 22 yo f w/ PMH urticaria who came into the ED c/o a 1 month hx episodic SOB, sensation of throat closing, difficulty swallowing and lightheadedness. In the ED, the patient was found to be persistently tachycardic into the 120's. AN EKG showed sinus tachycardia with 1st degree AV block. Patient denies chest pain at this time. CXR was negative for acute changes. D-Dimer was negative. TSH was WNL. Troponins were negative x3. The patient was treated in the ED with 50mg Benadryl IV, which precipitated an episode of her throat closing sensation accompanied by worsening tachycardia into the 150's. The patient was admitted to telemetry observation for further evaluation and treatment. Cardiology was consulted. ENT was consulted. Pulmonology was consulted. Cardiology had low suspicion for cardiac etiology, suggested echo while admitted to r/o effusion. ENT saw no evidence of angioedema or laryngospasm and recommended allergy/immunology follow up. Pulmonolgy suggested nebs to r/o reactive airway disease, but had low suspicion for PE given her negative D- dimer. The patient was treated with Loratidine, ranitidine, ativan, pepcid, duonebs and lovenox. The patient maintained a normal heart rate during her stay with no events on telemetry. Echocardiography showed no abnormalities. The patient was discharged with instructions to follow up at the [facility] resident clinic as well as with cardiology for outpatient holter monitoring. The patient was also advised to follow up with an stoker erector to better assess her urticaria. The patient was provided with prescriptions for pepcid, a medrol dose pack and an Epipen. The patient was taught how to recognize the signs and symptoms of allergic reaction and instructed to use the epipen in the event she experienced these symptoms. Date of Discharge: 04/30/18 Minutes to complete discharge: 33 Discharge Summary Reason For Visit: TACHYCARDIA, SHORTNESS OF BREATH Condition: Improved - Instructions Diet, Activity, Other Instructions: You were seen in the hospital for fast heart rate. You have been seen by a heart doctor and your heart is stable at this time. It is possible that this fast heart rate may be related to anxiety or possibly a food allergy. 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 Medrol Dose Pack (steroid): take as directed on the package 2. Take Pepcid 40mg once daily 3. 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 Referrals: Please make an appointment with one of our doctors at [address] [place] [address] ([phone]) for anxiety and/or panic attacks Follow up with at risk specialist by next week . You should follow up with a cellulose insulation helper within one week of discharge home for outpatient holter monitoring. We have included information for Dr. Fernandez, who saw you during your stay, in your discharge paperwork NO FISH PRODUCTS UNTIL TESTED BY BRAKES INSPECTOR Need an outpatient Pulmonary Function test *If you feel your heart racing, throat starting to close or have difficulty breathing, please report back to the emergency room immediately. Referrals: [facility] [place] [facility] [Provider Group] Gabby Peña MD [Staff Physician] - 1 Week Chencho Fernandez MD [Staff Physician] - Disposition: HOME - Home Medications Comprehensive Discharge Medication List: Ambulatory Orders Epinephrine [Epipen 2-Jerry] 0.3 mg IJ ASDIR #1 kit 04/29/18 Famotidine [Pepcid] 40 mg PO DAILY #14 tablet 04/29/18 Methylprednisolone [Medrol Dose Jerry] 4 mg PO ASDIR #21 tablet 04/29/18 This patient is new to me today: Yes Date on this admission: 04/30/18 Emergency Visit: Yes ED Registration Date: 04/28/18 Care time: The patient presented to the Emergency Department on the above date and was hospitalized for further evaluation of their emergent condition. Critical Care patient: No - Discharge Referral Referred to [facility] Med [facility] No
--- NOTE | 2018-04-30 16:44 | PN ---
Teaching Attending Note Name of Resident: Zander Dale ATTENDING PHYSICIAN STATEMENT I saw and evaluated the patient. I reviewed the resident's note and discussed the case with the resident. I agree with the resident's findings and plan as documented. SUBJECTIVE: Patient is feeling better with no acute distress. OBJECTIVE: Vital Signs Temperature 98.5 F 04/30/18 14:00 Pulse Rate 82 04/30/18 14:00 Respiratory Rate 20 04/30/18 14:00 Blood Pressure 118/65 04/30/18 14:00 O2 Sat by Pulse Oximetry (%) 99 04/30/18 14:00 CBCD WBC 12.0 K/mm3 (4.0-10.0) H 04/28/18 06:10 RBC 4.21 M/mm3 (3.60-5.2) 04/28/18 06:10 Hgb 12.6 GM/dL (10.7-15.3) 04/28/18 06:10 Hct 36.6 % (32.4-45.2) 04/28/18 06:10 MCV 86.9 fl (80-96) 04/28/18 06:10 MCHC 34.4 g/dl (32.0-36.0) 04/28/18 06:10 RDW 12.6 % (11.6-15.6) 04/28/18 06:10 Plt Count 267 K/MM3 (134-434) 04/28/18 06:10 MPV 8.7 fl (7.5-11.1) 04/28/18 06:10 CMP Sodium 141 mmol/L (136-145) 04/28/18 06:10 Potassium 3.8 mmol/L (3.5-5.1) 04/28/18 06:10 Chloride 108 mmol/L (98-107) H 04/28/18 06:10 Carbon Dioxide 22 mmol/L (21-32) 04/28/18 06:10 Anion Gap 11 (8-16) 04/28/18 06:10 BUN 10 mg/dL (7-18) 04/28/18 06:10 Creatinine 0.6 mg/dL (0.55-1.02) 04/28/18 06:10 Creat Clearance w eGFR > 60 (>60) 04/28/18 06:10 Random Glucose 75 mg/dL (74-106) 04/28/18 06:10 Calcium 8.9 mg/dL (8.5-10.1) 04/28/18 06:10 Total Bilirubin 0.5 mg/dL (0.2-1.0) 04/28/18 06:10 AST 5 U/L (15-37) L 04/28/18 06:10 ALT 17 U/L (12-78) 04/28/18 06:10 Alkaline Phosphatase 66 U/L (45-117) D 04/28/18 06:10 Total Protein 6.7 g/dl (6.4-8.2) 04/28/18 06:10 Albumin 3.9 g/dl (3.4-5.0) 04/28/18 06:10 CARDIAC ENZYMES Creatine Kinase 67 IU/L (26-192) 04/27/18 21:03 Troponin I < 0.02 ng/ml (0.00-0.05) 04/28/18 06:10 Home Medications Medication Instructions Recorded Epinephrine [Epipen 2-Jerry] 0.3 mg IJ ASDIR #1 kit 04/29/18 Famotidine [Pepcid] 40 mg PO DAILY #14 tablet 04/29/18 Methylprednisolone [Medrol Dose 4 mg PO ASDIR #21 tablet 04/29/18 Jerry] PE: per resident's note ASSESSMENT AND PLAN: Patient is a 22 y/o F w/ PMHx urticaria p/w 1 month h/o worsening episodic SOB, throat closing sensation, difficulty swallowing, noted to be persistently to be tachycardic on presentation # Sinus Tachycardia : episodic , patient is comfortable at this time. No further episode today. s/p tachycardia and sensation of throat closing , As per patient had a fish before this happened, started the patient on Decadron q6h will continue on Medrol dospak , will stop ativan . allergy testing as an outpatient. Echo is within normal limits. Also pulmonary function test needed as an outpatient. Holter monitor as an outpatient with 's office.Will discharge her on medrol dose pack, pepcid, and Epi Pen to carry with her and to use only if her throat closes up.
== END 2018-04-30 15:37 | disposition home or self-care (01) ==
LOC: JER 16:29 → JERBED 23:59 → UNDOADMOB 23:59 → JERBED 04-28 00:10 → J4W 04-28 02:18
PROVIDERS: ADMIT Internal Medicine; ATTEND Internal Medicine
PROC: 3E033NZ Introduction of Analgesics, Hypnotics, Sedatives into Peripheral Vein, Percutaneous Approach (ICD-10-PCS; principal; 2018-04-28)
PROC: 3E033GC Introduction of Other Therapeutic Substance into Peripheral Vein, Percutaneous Approach (ICD-10-PCS; 2018-04-28)
PROC: 3E0337Z Introduction of Electrolytic and Water Balance Substance into Peripheral Vein, Percutaneous Approach (ICD-10-PCS; 2018-04-28)
PROC: 3E0F7GC Introduction of Other Therapeutic Substance into Respiratory Tract, Via Natural or Artificial Opening (ICD-10-PCS; 2018-04-28)
DX: R06.02 Shortness of breath (principal); R00.0 Tachycardia, unspecified
CPT/HCPCS: 36415; 71046-TC-FY; 80053; 81003; 81015; 82550; 82553; 83520; 83735; 84100; 84443; 84484; 84703; 85025; 85027; 85379; 85610; 85730; 86618; 87086; 93005; 93010; 93306-TC; 94150; 94640; 96361; 96374; 96375; 96376; 99285-25; G0378; J7030; J7620